=== PATIENT | female | born 1990 | race Caucasian/White ===

== ENCOUNTER 2017-04-24 01:08 | Emergency (ER) | payer MEDICAID ==
[~2017-04-24] VITALS: Ht 157.5 cm; Wt 70.8 kg
[2017-04-24 01:19] VITALS: Ht 157.5 cm; Wt 70.8 kg
[2017-04-24 02:52] LABS: BASOPHIL % 0.4 % (0-2); PLATELET COUNT 330 x10^3mcL (130-400); RED CELL DISTRIBUTION WIDTH 13.1 % (11.5-14.5)
[2017-04-24 03:00] LABS: CALCIUM 8.7 mg/dL (8.5-10.1); CARBON DIOXIDE 26.1 mmol/L (21-32); CHLORIDE SERUM 104 mmol/L (98-107); CREATININE SERUM 0.8 mg/dL (0.6-1.0); GFR1 > 60 mL/min; GLUCOSE SERUM 117 mg/dL (74-106); POTASSIUM SERUM 3.7 mmol/L (3.5-5.1); SODIUM SERUM 140 mmol/L (136-145)
[2017-04-24 03:05] LABS: ALBUMIN 3.6 g/dL (3.4-5.0); ALKALINE PHOSPHATASE 55 U/L (46-116); ALT/SGPT 16 U/L (14-59); AST/SGOT 10 U/L (15-37); BILIRUBIN TOTAL 0.25 mg/dL (0.20-1.00)
[2017-04-24 03:22] LABS: AMPHETAMINE QUAL UR NONE DETECTED (NEG <=1000)
[2017-04-24 04:39] VITALS: BP 105/55
== END 2017-04-24 04:39 | disposition home or self-care (01) ==
LOC: ED 01:08
PROVIDERS: Emergency Medicine
DX: R55 Syncope and collapse (principal); D72.829 Elevated white blood cell count, unspecified
CPT/HCPCS: 36415